=== PATIENT | male | born 1960 | race Caucasian/White ===

== ENCOUNTER → 2018-02-09 | Outpatient (CLI) | payer BC ==
[2018-02-09 18:31] LABS: ALT 28 U/L (21-72); AST 27 U/L (17-59); Albumin 4.3 g/dL (3.5-5.0); Alkaline Phosphatase 92 U/L (38-126); Anion Gap 14 mmol/L; Blood Urea Nitrogen 16 mg/dL (9-20); Calcium 10.3 mg/dL (8.4-10.2); Carbon Dioxide 28 mmol/L (22-30); Chloride 100 mmol/L (98-107); Cholesterol 215 mg/dL (<200); Glucose 100 mg/dL (74-99); HDL Cholesterol 78 mg/dL (40-60); LDL Cholesterol,Calculated 123 mg/dL (0-99); Potassium 5.3 mmol/L (3.5-5.1); Sodium 142 mmol/L (137-145); Total Bilirubin 0.7 mg/dL (0.2-1.3); Total Protein 7.9 g/dL (6.3-8.2); Triglycerides 70 mg/dL (<150)
[2018-02-09 18:57] LABS: PSA Annual Screen 0.86 ng/mL (0.00-4.00)
[2018-02-09 19:06] LABS: Basophils # (A) 0.1 k/uL (0-0.2); Basophils % (A) 1 %; Eosinophils # (A) 0.1 k/uL (0-0.7); Eosinophils % (A) 1 %; HCT 46.1 % (39.0-53.0); HGB 15.4 gm/dL (13.0-17.5); Lymphocytes # (A) 2.8 k/uL (1.0-4.8); Lymphocytes % (A) 34 %; MCH 31.5 pg (25.0-35.0); MCHC 33.5 g/dL (31.0-37.0); MCV 94.2 fL (80.0-100.0); Mean Platelet Volume 11.3; Monocytes # (A) 0.5 k/uL (0-1.0); Monocytes % (A) 6 %; Neutrophils # (A) 4.7 k/uL (1.3-7.7); Neutrophils % (A) 57 %; Platelet Count 353 k/uL (150-450); RBC 4.89 m/uL (4.30-5.90); WBC 8.3 k/uL (3.8-10.6)
[2018-02-10 00:51] LABS: Hepatitis A Antibody IgM Non-Reactive (Non-Reactive); Hepatitis B Core IgM Non-Reactive (Non-Reactive)
== END | disposition home or self-care (01) ==
LOC: MMGSC 16:15
PROVIDERS: ATTEND Family Medicine
DX: Z00.00 Encounter for general adult medical examination without abnormal findings (principal); Z12.5 Encounter for screening for malignant neoplasm of prostate; Z11.59 Encounter for screening for other viral diseases
CPT/HCPCS: 84439; 80061; 80053; 80074; 84443; 85025; 36415; G0103

== ENCOUNTER 2025-03-19 08:29 | Day surgery (SDC) | payer BC ==
[2025-03-19 08:58] VITALS: BP 165/82; PULSE 57; RESP 16; TEMP 98.4
--- NOTE | 2025-03-19 10:51 | US ---
EXAMINATION TYPE: US discontinued FNA panel DATE OF EXAM: 03/19/2025 9:25 AM COMPARISON: 11/06/2024 CLINICAL INDICATION:Male, 65 years old with history of R22.1 LOCALIZED SWELLING, MASS AND LUMP, NECK; , ATTENDING: Dr. Hieu Coelho PROCEDURE: Informed consent was obtained. The risks and benefits of the procedure were discussed with the patien t. The site was marked. Timeout procedure was performed Ultrasound imaging demonstrates resolution of prior cystic lesion seen on outside imaging. Given extr yuliya change and morphology and picture exact lesion was unable to be ascertained. Patient agreed to ort-term follow-up in 6 months. IMPRESSION: Canceled procedure as there was a complete change in morphology of the lesion with decrease in size c ompared to prior outside imaging on 11/06/2024. Short-term follow-up in 6 months recommended with ultra sound of the right parotid gland to ensure stability. Patient agreed to this plan. [facility], , 03/19/2025 10:49 AM
== END 2025-03-19 09:44 | disposition home or self-care (01) ==
LOC: RADPROMAIN 08:29
PROVIDERS: ATTEND Otolaryngology
DX: R22.1 Localized swelling, mass and lump, neck (principal); Z53.8 Procedure and treatment not carried out for other reasons
CPT/HCPCS: 76536